=== PATIENT | male | born 1960 | race Caucasian/White ===

== ENCOUNTER 2017-06-17 19:14 | Observation (INO) | payer MEDICARE ==
[2017-06-17 20:11] LABS: #Eosinphils 0.1 thou/uL (0.0-0.7); #Lymphocytes 1.9 thou/uL (1.20-3.40); #Monocytes 0.5 thou/uL (0.11-0.59); #Neutrophils 3.7 thou/uL (1.40-6.50); %Basophils 0.4 % (0.0-1.0); %Eosinophils 1.3 % (0.0-10.0); %Lymphocytes 30.2 % (21.0-51.0); %Monocytes 8.1 % (0.0-10.0); Hematocrit 41.4 % (42.0-52.0); Mean Platelet Volume 8.6 fL (7.4-10.4); Red Blood Cell (RBC) Count 4.62 mill/uL (4.70-6.10); White Blood Cell (WBC) Count 6.2 thou/uL (4.8-10.8)
[2017-06-17 20:32] LABS: ALT (SGPT) 21 U/L (8-55); AST (SGOT) 14 U/L (5-34); Alkaline Phosphatase 66 U/L (40-150); Anion Gap 10 mmol/L (10-20); BUN (Urea Nitrogen) 14 mg/dL (8.4-25.7); Bilirubin, Total 0.8 mg/dL (0.2-1.2); CK (CPK) 119 U/L (30-200); Calc. Creatinine Clearance 0 mL/min (70-130); Carbon Dioxide 30 mmol/L (22-29); Chloride 104 mmol/L (98-107); Estimated GFR-MDRD 69; Globulin 2.1 g/dL (2.4-3.5); Protein, Total 5.9 g/dL (6.0-8.3)
[2017-06-17 20:36] LABS: Troponin I 0.091 ng/mL (< 0.028)
--- NOTE | 2017-06-17 21:20 | RAD ---
CHEST ONE VIEW: History: Chest pain. Hypertension. Comparison: 10-15-16 FINDINGS: Cardiac silhouette is magnified by projection and upper limits of normal in size. Pulmonary vasculatu re is unremarkable. Mediastinum is midline with aortic calcifications and post-operative changes. The re is no lobar consolidation or evidence of pneumothorax. environmental monitoring specialist leads overlie the chest. IMPRESSION: No active cardiopulmonary abnormalities are demonstrated. POS: [facility]
--- NOTE | 2017-06-17 22:47 | CT ---
CT HEAD NONCONTRAST: History: Headache. Hypertension. FINDINGS: No comparison. There is no evidence of acute intracranial hemorrhage or infarct. The ventricles appea r normal in size, shape, and position. There is no mass effect of shift of midline structures. IMPRESSION: No acute intracranial abnormalities are demonstrated on noncontrast CT head. POS: [facility]
[2017-06-18 00:05] LABS: Troponin I 0.096 ng/mL (< 0.028)
[2017-06-18] MEDS ORDERED: Ondansetron ODT 4 MG TAB SL PRN (01:07)
[2017-06-18] MEDS ORDERED: Acetaminophen 325 MG TAB PO PRN (01:07)
[2017-06-18] MEDS ORDERED: Ondansetron HCl/PF 4 MG/2 ML Vial IVP PRN (01:07)
[2017-06-18 01:33] VITALS: BMI 42.0
[2017-06-18 03:20] LABS: Troponin I 0.082 ng/mL (< 0.028)
[2017-06-18] MEDS ORDERED: Nitroglycerin 0.4 MG TAB (25 Tab Bottle) SL PRN (04:31)
[2017-06-18] MEDS ORDERED: HYDROcodone/Acetaminophen 5/325 mg Tablet PO PRN ×2 (04:31)
[2017-06-18] MEDS ORDERED: Dextrose 5% in Water 1,000 ML IV PRN (04:34)
[2017-06-18] MEDS ORDERED: Dextrose 50% Abboject 50 ML SYRINGE SLOW IVP PRN (04:34)
--- NOTE | 2017-06-18 05:21 | HP ---
PRIMARY CARE PHYSICIAN: Dr. Nick Salas. CHIEF COMPLAINT: High blood pressure. HISTORY OF PRESENT ILLNESS: Mr. Fernandez is a pleasant 56-year-old gentleman who was seen at [facility] on 06/18/2017. He reports that over the last 3 days, his blood pressures have been elevated at home. This was accom panied by dull frontal headache, bilateral, nonradiating, 5/10 at its worst, no known aggravating or relieving factors. He reports that the headaches have improved after his blood pressures decreased i n the emergency room. He also reports chronic chest discomfort at the site of his bypass surgery. The chest discomfort has not changed recently. He denies any change in his exercise tolerance. He also reports having blurry vision with headache. In terms of chest pain, he reports that it is dull, nonradiating, 1-2/10, no known aggravating or rel ieving factors. He denies that his pain is associated with any nausea or vomiting. REVIEW OF SYSTEMS: The following complete review of systems was negative, unless otherwise mentioned in the HPI or below: Constitutional: Weight loss or gain, sense of well-being, ability to conduct usual activities, exerc ise tolerance. Skin/Breast: Rash, itching, changes in hair growth or loss, nail changes, breast lumps, tenderness, swelling, nipple discharge. Eyes: Vision, double vision, tearing, blind spots, pain. ENT/Mouth: Headaches (location, time of onset, duration, precipitating factors), vertigo, lightheade dness, injury. Vision, double vision, tearing, blind spots, pain, nose bleeding, colds, obstruction, discharge, dental difficulties, gingival bleeding, dentures, neck stiffness, pain, tenderness, masses in thyroid or other areas. Cardiovascular: Precordial pain, substernal distress, palpitations, syncope, dyspnea on exertion, or thopnea, nocturnal paroxysmal dyspnea, edema, cyanosis, hypertension, heart murmurs, varicosities, ph lebitis, claudication. Respiratory: Pain, shortness of breath, wheezing, stridor, cough, hemoptysis, fever or night sweats. Gastrointestinal: Poor appetite, dysphagia, indigestion, abdominal pain, heartburn, eructation, naus ea, vomiting, hematemesis, jaundice, constipation, or diarrhea, abnormal stools (norma-colored, tarry, bloody, greasy, foul smelling), flatulence, hemorrhoids, recent changes in bowel habits. Genitourinary: Urgency, frequency, dysuria, nocturia, hematuria, polyuria, oliguria, unusual (or laurel nge in) color of urine, stones, hesitancy, change in size of stream, dribbling, acute retention or in continence, libido, potency. Musculoskeletal: Pain, swelling, redness or heat of muscles or joints, limitation, of motion, muscul ar weakness, atrophy, cramps. Neurologic/Psychiatric: Convulsions, paralyses, tremor, incoordination, paraesthesias, difficulties with memory of speech, sensory or motor disturbances, or muscular coordination (ataxia, tremor), emot ional problems, anxiety, depression, previous psychiatric care, unusual perceptions, hallucinations. Allergy/Immunologic: Skin rash, anemia, bleeding tendency, polydipsia, polyuria, intolerance to heat or cold. PAST MEDICAL HISTORY: Significant for diabetes mellitus type 2, hypertension, myocardial infarction, obesity, dyslipidemia, obstructive sleep apnea syndrome diagnosed about 17 years ago, patient does n ot use CPAP. Echocardiogram showing left ventricular ejection fraction of 25% prior to his bypass gr aft surgery. PAST SURGICAL HISTORY: Significant for elbow surgery, back surgery and coronary artery bypass graft x4 in 09/2016. FAMILY HISTORY: Both parents have pacemakers. SOCIAL HISTORY: The patient denies tobacco use, alcohol use or recreational drug use. ALLERGIES: No known drug allergies. CURRENT MEDICATIONS: Include Coreg 12.5 mg 2 times a day, aspirin 325 mg daily, lisinopril 5 mg michelle y, furosemide 20 mg 2 times a day, atorvastatin 40 mg at bedtime, Victoza 0.6 mg subcutaneously daily , Tresiba 90 units daily. PHYSICAL EXAMINATION: GENERAL: Mr. Fernandez is awake and alert, not in acute distress. He is morbidly obese, with a BMI of 42.1. VITAL SIGNS: Blood pressure is 144/91, pulse is 86, he is breathing at rate of 16, and saturating 96 % on room air. He is afebrile. In the emergency room, his blood pressure was as high as 184/112. EYES: No scleral icterus. No conjunctival pallor. ENT: Moist mucosal membranes, no oropharyngeal erythema or exudates. NECK: Supple, nontender, normal range of movement. Trachea is midline. RESPIRATORY: Accessory muscles of breathing are not active. Chest wall movements are symmetric bila terally. LUNGS: Clear to auscultation, without wheeze, rhonchi or crepitations. CARDIOVASCULAR: S1 and S2 are heard, regular. Peripheral pulses palpable. No carotid bruit, no per icardial rub. NEUROLOGIC: Cranial nerves II through XII are intact. Deep tendon reflexes are 2+. ABDOMEN: Soft, nontender, bowel sounds heard, no hepatomegaly, no splenomegaly. MUSCULOSKELETAL: Power is 5/5 in all 4 extremities. Normal range of movement at all major extremity joints. SKIN: No rashes or subcutaneous nodules. LYMPHATIC: No cervical lymphadenopathy. PSYCHIATRIC: Normal mood, normal affect, patient is oriented to person, place, and time. LABORATORY DATA AND IMAGING: Mr. Fernandez's labs and investigations were reviewed. I reviewed his electrocardiogram, which shows normal sinus rhythm, with Q-waves in the anterior leads. He also has Q-waves in the inferior leads. I also reviewed his chest x-ray, which does not show any pulmonary i nfiltrates. Laboratory investigation showed an unremarkable CBC, normal sodium, normal potassium, no rmal creatinine, indeterminate troponin I of 0.082 and an unremarkable liver profile. ASSESSMENT AND PLAN: Mr. Fernandez is a pleasant 56-year-old gentleman who was seen at [facility] on 06/18/2017. His problem list includes: 1. Hypertensive urgency. He presented to the emergency room because of hypertensive urgency. Blood pressure is now improved. Prior to arrival, he took an extra dose of Clonidine, but it reportedly d id not help. He will be admitted to the hospital for management of his blood pressure. 2. Elevated troponin I. His troponins are in the indeterminate range. He specifically denies any r ecent chest pain. He does report the chronic chest discomfort following coronary artery bypass graft surgery. However, he is a diabetic patient and could be presenting with atypical acute coronary syn drome. We will order a stress test. Further course of action depending on the outcome of the stress test. 3. Diabetes mellitus: Resume home medications, start Accu-Cheks and insulin sliding scale. 4. Dyslipidemia: Continue statins. 5. Obstructive sleep apnea syndrome: Currently, untreated, could be the cause of his resistant hype rtension. I counseled him and advised him to have a sleep study if needed and to start CPAP therapy if he still has obstructive sleep apnea syndrome. Many thanks for allowing me to participate in your patient's care. Please feel free to contact me wi th any questions or concerns. LEVEL OF RISK: High. LEVEL OF COMPLEXITY: High.
[2017-06-18] MEDS ORDERED: Carvedilol 25 MG TAB PO SCH (08:00)
[2017-06-18] MEDS: Lisinopril 5 MG TAB PO SCH (08:25)
[2017-06-18] MEDS ORDERED: (Liraglutide [Victoza 2-Pak] 0.6 MG) SC SCH ×2 (09:00→19:30)
[2017-06-18] MEDS ORDERED: hydrALAZINE 20 MG/ML VIAL SLOW IVP PRN (09:16)
[2017-06-18] MEDS: Furosemide 40 MG TAB PO SCH (09:21)
[2017-06-18] MEDS: Aspirin 325 mg Enteric Coated Tablet PO SCH (09:22)
[2017-06-18] MEDS: Atorvastatin Calcium 40 MG TAB PO SCH (09:22)
[2017-06-18] MEDS: Enoxaparin Sodium 40 MG/0.4 ML SYRINGE SC SCH ×2 (09:23→09:38)
--- NOTE | 2017-06-18 15:12 | PDOC.PN ---
- Subjective Encounter Start Date: 06/18/17 Encounter Start Time: 15:10 Patient seen at bedside. No C/P, SOB. No overnight events. - Objective Vital Signs & Weight: Vital Signs (12 hours) Temp Pulse Resp BP BP Pulse Ox 06/18/17 13:48 175/92 H 06/18/17 11:58 98.1 F 78 20 193/94 H 98 06/18/17 09:24 87 06/18/17 08:25 87 06/18/17 08:00 97.4 F L 87 20 06/18/17 07:34 97.4 F L 87 20 185/102 H 96 06/18/17 06:44 96 06/18/17 04:00 98.2 F 86 16 144/91 H 96 Weight Weight 310 lb 1.6 oz I&O: 06/17/17 06/18/17 06/19/17 06:59 06:59 06:59 Intake Total 100 Balance 100 Result Diagrams: 06/17/17 19:57 06/17/17 19:57 Additional Labs: Accuchecks 06/18/17 12:03 POC Glucose 141 H Phys Exam - Physical Examination Constitutional: NAD HEENT: moist MMs Neck: no JVD Respiratory: clear to auscultation bilateral Cardiovascular: RRR Gastrointestinal: soft Musculoskeletal: pulses present Neurological: moves all 4 limbs Psychiatric: normal affect, A&O x 3 Dx/Plan (1) Hypertension Code(s): I10 - ESSENTIAL (PRIMARY) HYPERTENSION Status: Chronic (2) Chest pain Code(s): R07.9 - CHEST PAIN, UNSPECIFIED Status: Resolved - Plan cont current plan of care, plan discussed w/ family * Increase Coreg to 25 mg PO BID * ASA/Statin * Await second portion of NM stress test
[2017-06-18] MEDS: Carvedilol 25 MG TAB PO SCH (16:40)
[2017-06-18] MEDS: HumaLOG 300 UNITS/3 ML VIAL SC PRN (19:18)
[2017-06-18] MEDS: Insulin Degludec [Tresiba Flextouch U-100] SC SCH ×3 (19:21)
[2017-06-18] MEDS: (Liraglutide [Victoza 2-Pak] 0.6 MG) SC SCH (19:21)
[2017-06-19 05:46] LABS: #Eosinphils 0.1 thou/uL (0.0-0.7); #Lymphocytes 1.5 thou/uL (1.20-3.40); #Monocytes 0.5 thou/uL (0.11-0.59); #Neutrophils 4.1 thou/uL (1.40-6.50); %Basophils 0.3 % (0.0-1.0); %Eosinophils 2.3 % (0.0-10.0); %Lymphocytes 24.3 % (21.0-51.0); %Monocytes 7.8 % (0.0-10.0); Hematocrit 41.3 % (42.0-52.0); Mean Platelet Volume 9.2 fL (7.4-10.4); Red Blood Cell (RBC) Count 4.57 mill/uL (4.70-6.10); White Blood Cell (WBC) Count 6.2 thou/uL (4.8-10.8)
[2017-06-19 06:00] LABS: Anion Gap 10 mmol/L (10-20); BUN (Urea Nitrogen) 17 mg/dL (8.4-25.7); Calc. Creatinine Clearance 148 mL/min (70-130); Calcium 8.7 mg/dL (7.8-10.44); Carbon Dioxide 27 mmol/L (22-29); Chloride 103 mmol/L (98-107); Estimated GFR-MDRD 70
[2017-06-19] MEDS: HumaLOG 300 UNITS/3 ML VIAL SC PRN (06:40)
[2017-06-19] MEDS: Lisinopril 5 MG TAB PO SCH (08:07)
[2017-06-19] MEDS: Carvedilol 25 MG TAB PO SCH (08:07)
[2017-06-19] MEDS: Aspirin 325 mg Enteric Coated Tablet PO SCH (10:02)
[2017-06-19] MEDS: Furosemide 40 MG TAB PO SCH (10:02)
[2017-06-19] MEDS: Atorvastatin Calcium 40 MG TAB PO SCH (10:02)
[2017-06-19] MEDS: Enoxaparin Sodium 40 MG/0.4 ML SYRINGE SC SCH (10:03)
[2017-06-19] MEDS: Insulin Degludec [Tresiba Flextouch U-100] SC SCH ×3 (10:04)
[2017-06-19] MEDS: (Liraglutide [Victoza 2-Pak] 0.6 MG) SC SCH (10:04)
--- NOTE | 2017-06-19 10:37 | PDOC.PN ---
- Subjective Encounter Start Date: 06/19/17 Encounter Start Time: 08:45 Subjective: no chest pain or sob -: feels better - Objective MAR Reviewed: Yes Vital Signs & Weight: Vital Signs (12 hours) Temp Pulse Resp BP Pulse Ox 06/19/17 08:07 96 06/19/17 08:00 97.5 F L 96 14 181/100 H 96 06/19/17 04:20 98.1 F 96 20 141/93 H 96 06/18/17 23:27 98.3 F 80 18 170/89 H 97 Weight Weight 310 lb 1.6 oz I&O: 06/18/17 06/19/17 06/20/17 06:59 06:59 06:59 Intake Total 100 1650 Balance 100 1650 Result Diagrams: 06/19/17 04:52 06/19/17 04:52 Additional Labs: Accuchecks 06/18/17 06/18/17 06/18/17 20:45 16:54 12:03 POC Glucose 144 H 233 H 141 H Phys Exam - Physical Examination HEENT: PERRLA, moist MMs Neck: no JVD, supple Respiratory: no wheezing, no rales Cardiovascular: RRR, no significant murmur Gastrointestinal: soft, non-tender, positive bowel sounds Musculoskeletal: pulses present Neurological: non-focal, moves all 4 limbs Psychiatric: A&O x 3 Dx/Plan (1) Hypertension Code(s): I10 - ESSENTIAL (PRIMARY) HYPERTENSION Status: Acute Comment: uncontrolled (2) CAD (coronary artery disease) Code(s): I25.10 - ATHSCL HEART DISEASE OF [place] CORONARY ARTERY W/O ANG PCTRS Status: Chronic Qualifiers: Coronary Disease-Associated Artery/Lesion type: bypass graft [place] vs. transplanted heart: [place] heart Associated angina: without angina Qualified Code(s): I25.810 - Atherosclerosis of coronary artery bypass graft(s) without angina pectoris (3) Dyslipidemia Code(s): E78.5 - HYPERLIPIDEMIA, UNSPECIFIED Status: Chronic (4) Demand ischemia of myocardium Code(s): I24.8 - OTHER FORMS OF ACUTE ISCHEMIC HEART DISEASE Status: Acute (5) DM type 2 (diabetes mellitus, type 2) Status: Chronic Qualifiers: Diabetes mellitus complication status: with unspecified complications Diabetes mellitus assistant terminal manager insulin use: without snf use Qualified Code( s): E11.8 - Type 2 diabetes mellitus with unspecified complications (6) DEEPALI (obstructive sleep apnea) Code(s): G47.33 - OBSTRUCTIVE SLEEP APNEA (ADULT) (PEDIATRIC) Status: Chronic (7) Obesity Code(s): E66.9 - OBESITY, UNSPECIFIED Status: Chronic Qualifiers: Obesity classification: adult class 3 (BMI >= 40) Body mass index: BMI 40.0 -44.9 - Plan will add spironolactone to current regimen to control htn -: stress test is abnormal likely due to prior cad with scarring -: cardiology opinion prior to discharge -: is on coreg, lisinopril and lasix -: suggest a small dose of imthuy pacheco plan per cardio advice * . d/w , dc pt home, [facility] on . Has f/u with in 2 weeks. Review of Systems - Medications/Allergies Allergies/Adverse Reactions: Allergies Allergy/AdvReac Type Severity Reaction Status Date / Time No Known Allergies Allergy Verified 10/12/16 21:09 Medications: Current Medications Hydrocodone Bitart/Acetaminophen ([place] 5/325) 1 tab PO Q4H PRN PRN Reason: Moderate Pain (4-6) Hydrocodone Bitart/Acetaminophen ([place] 5/325) 2 tab PO Q4H PRN PRN Reason: Severe Pain (7-10) Last Admin: 06/18/17 12:30 Dose: 2 tab Aspirin (Ecotrin) 325 mg PO DAILY ON LICENSE OF [facility] Last Admin: 06/19/17 10:02 Dose: 325 mg Atorvastatin Calcium (Lipitor) 40 mg PO DAILY ON LICENSE OF [facility] Last Admin: 06/19/17 10:02 Dose: 40 mg Carvedilol (Coreg) 25 mg PO BID-[facility] Last Admin: 06/19/17 08:07 Dose: 25 mg Dextrose/Water (Dextrose 50%) 25 gm SLOW IVP PRN PRN PRN Reason: Hypoglycemia Enoxaparin Sodium (Lovenox) 40 mg SC 0900 ON LICENSE OF [facility] Last Admin: 06/19/17 10:03 Dose: Not Given Furosemide (Lasix) 20 mg PO DAILY ON LICENSE OF [facility] Last Admin: 06/19/17 10:02 Dose: 20 mg Glucagon (Glucagon) 1 mg IM PRN PRN PRN Reason: Hypoglycemia Hydralazine HCl (Apresoline) 10 mg SLOW IVP Q4H PRN PRN Reason: SBP Greater Than 170 Last Admin: 06/18/17 09:24 Dose: 10 mg Dextrose/Water (D5w) 1,000 mls @ 0 mls/hr IV .Q0M PRN; As Directed PRN Reason: Hypoglycemia Insulin Human Lispro (Humalog) 0 units SC .MILD SLIDING SCALE PRN PRN Reason: Mild Correctional Scale Last Admin: 06/19/17 06:40 Dose: 6 unit Lisinopril (Zestril) 5 mg PO DAILY ON LICENSE OF [facility] Last Admin: 06/19/17 08:07 Dose: 5 mg Nitroglycerin (Nitrostat) 0.4 mg SL DAILY PRN PRN Reason: Chest Pain Insulin Degludec [ Tresiba Flextouch U- 100] 0 each SC DAILY ON LICENSE OF [facility] Last Admin: 06/19/17 10:04 Dose: 1 each (Liraglutide [ Victoza 2-Christian] 0.6 Mg) 0 each SC DAILY ON LICENSE OF [facility] Last Admin: 06/19/17 10:04 Dose: 1 each Sodium Chloride (Flush - Normal Saline) 10 ml IVF Q12HR ON LICENSE OF [facility] Last Admin: 06/19/17 10:03 Dose: 10 ml Sodium Chloride (Flush - Normal Saline) 10 ml IVF PRN PRN PRN Reason: Saline Flush
[2017-06-19] MEDS ORDERED: Spironolactone 25 MG TAB PO SCH (10:45)
[2017-06-19 11:33] VITALS: BP 163/87; TEMP 98.2
--- NOTE | 2017-06-19 12:16 | NM ---
MYOCARDIAL PERFUSION STUDY: DATE: 06/19/17. HISTORY: History of coronary disease post CABG. History of prior myocardial infarction. Indeterminate tropon in levels. RADIOPHARMACEUTICALS: 30.8 mCi Technetium 99m sestamibi, IV at stress, and 29.2 mCi Technetium 99m sestamibi, IV at rest. FINDINGS: There is decreased uptake of radiotracer seen within the mid and distal anterior left ventricular wal l and extending to the apex on both the resting and stress acquisitions. There is a suggestion of mi nimal reversibility involving a portion of the distal left anterior wall. Gated images show hypokine sis involving the inferior left ventricular wall motion and to a greater extent involving the septum with dyskinesis involving the distal aspect of the septum and extending to the apex. There is also a bsent thickening involving the mid and distal anterior wall. The left ventricular ejection fraction is diminished at 44%. IMPRESSION: 1. Abnormal myocardial perfusion study with evidence of scarring in the mid and distal anterior left ventricular wall extending to the apex with suggestion of minimal periinfarct ischemia at the distal anterior wall. 2. Dyskinesis involving the distal septum with hypokinesis involving the inferior wall and septum as well as anterior wall. There is diminished thickening involving the anterior wall. 3. Calculated left ventricular ejection fraction is decreased at 44%. POS: [facility]
--- NOTE | 2017-06-19 18:16 | CON ---
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 REASON FOR CONSULTATION: Abnormal stress. HISTORY OF PRESENT ILLNESS: Mr. Fernandez is a very pleasant 56-year-old white gentleman, who comes to the hospital for elevated blood pressure and headache. He is a patient of Dr. Aba Noyola, he saw him back in September for new onset cardiomyopathy, he had a heart catheterization that showed mu ltivessel disease and underwent coronary artery bypass grafting x4 by Dr. Aguilar at that time. He tahira ntually had an EF that improved back to the 50% to 55% range on an echo in December and has been dealing with chronic chest wall pain from the surgery ever since he left the hospital for his bypass. He com es in because he has had 3 or 4 days of headache. His blood pressure has been in the 220s/120s range . He eventually this Wednesday come in and was admitted for hypertensive emergency. His blood pressu re has improved somewhat, but still not back to normal and he denies any chest pain, tightness, or pr essure except for his chronic pain. Because of this pain, he had a stress test that showed an apical scar with dyskinesis of the septum. and this is a very small area of armando-infarct ischemia in the ap ex and an EF of 44%, which is close to what the echocardiogram showed with an EF of 50% to 55% back december. He denies any other issues other than the headache and high blood pressure. PAST MEDICAL HISTORY: 1. Type 2 diabetes. 2. Hypertension. 3. History of IA. 4. Obesity. 5. Hyperlipidemia. 6. DEEPALI. 7. Ischemic cardiomyopathy with improved EF after bypass. PAST SURGICAL HISTORY: 1. Elbow surgery. 2. Back surgery. 3. Coronary artery bypass grafting x4 in 09/2016. FAMILY HISTORY: Noncontributory, pacemakers in both parents. SOCIAL HISTORY: No alcohol, tobacco, or drugs. OUTPATIENT MEDICATIONS: Include, 1. Coreg 12.5 mg b.i.d. 2. Aspirin 325 mg a day. 3. Lisinopril 20 mg a day. 4. Furosemide 200 mg b.i.d. 5. Atorvastatin 40 mg at bedtime. 6. Victoza. 7. Tresiba. ALLERGIES: No known drug allergies. PHYSICAL EXAMINATION: VITAL SIGNS: Temperature 98.2, pulse 77, respiratory rate 20, saturating 96% on room air, and blood pressure 163/87, on admission was 220/128. GENERAL: Awake, alert, oriented x3. No distress. HEENT: Normocephalic, atraumatic. NECK: Supple. LUNGS: Clear. CARDIOVASCULAR: S1 and S2. No S3 or S4. No murmurs or rubs. ABDOMEN: Soft, positive bowel sounds. EXTREMITIES: No edema. SKIN: Warm and dry. LABORATORY DATA: Laboratory work was reviewed. White count of 6.2, hemoglobin of 14, hematocrit of 41, and platelet count of 152. Chemistries are unremarkable except for glucose of 284. BUN and crea tinine were normal. Troponin has been at 0.09, 0.09, and 0.08. ASSESSMENT NAD PLAN: 1. Hypertensive emergency. 2. Coronary artery disease, stable at this time. 3. Ischemic cardiomyopathy, EF is close to what it was called on an echocardiogram back in December, lópez carrillo this is a new change as he remains asymptomatic. 4. Status post bypass just 8 months ago. 5. Type 2 diabetes. PLAN: 1. We will increase his lisinopril to 10 mg twice a day. Agree with addition of Imdur and increase of carvedilol to 25 mg twice a day. 2. No further cardiac evaluation is required at this time. We will just increase the medications, a nd if his blood pressure is reasonably controlled, he should be able to be discharged home at any poi nt from the cardiac perspective. He has a followup appointment with Dr. Aba Noyola in 2 weeks but he should keep. Thank you for letting us to participate in the care of your patient. We will follow.
[2017-06-19] MEDS ORDERED: Lisinopril 10 MG TAB PO SCH (21:00)
--- NOTE | 2017-06-19 21:24 | DIS ---
DATE OF ADMISSION: 06/18/2017 DATE OF DISCHARGE: 06/19/2017 DISCHARGE DISPOSITION: To home. PRIMARY DISCHARGE DIAGNOSES: Uncontrolled hypertension, resolving; demand ischemia secondary to above. SECONDARY DISCHARGE DIAGNOSES: Coronary artery disease with coronary artery bypass grafting done in September of 2016, diabetes mellitus type 2, dyslipidemia, obstructive sleep apnea, and obesity. PROCEDURES DONE DURING HOSPITALIZATION: The patient has had CT brain, which showed no acute intracranial abnormalities. Chest x-ray done showed no acute cardiopulmonary abnormalities. Nuclear stress test done showed evidence of scarring in the mid and distal anterior left ventricular wall extending to the apex with suggestion of minimal armando-infarct ischemia of the distal anterior wall, the dyskinesis involving distal septum with hypokinesis involving the inferior wall and septum as well the anterior wall. Calculated EF was 44%. H and H 14 and 41, platelet count 139. BUN 17, creatinine 1.0. Troponin I was indeterminate with peaking up to 0.096, CK-MB 4.0. DISCHARGE MEDICATIONS: Aspirin 325 mg p.o. daily, Lipitor 40 mg p.o. daily, Coreg 25 mg twice daily, Lasix 20 mg daily, Tresiba 90 units subcutaneously daily, Imdur extended release 30 mg p.o. daily, Victoza 0.6 mg subcutaneous daily, lisinopril 10 mg twice daily, and spironolactone 25 mg p.o. q.a.m. ALLERGIES: No known drug allergies. INPATIENT CONSULTS: Dr. Gusman for Cardiology. DISCHARGE PLAN: The patient has a followup appointment with Dr. Noyola in 2 weeks. He also needs to follow up with , his primary care physician in 1 week. The patient has been advised to check blood pressure and pulse twice daily for a period of 10 days to follow up with primary care physician. He also needs to have metabolic panel to be done on . BRIEF COURSE DURING HOSPITALIZATION: The patient initially got admitted on the with reports of elevated blood pressure from last 3 days at home. He has also had dull frontal headache with off and on blurry vision. On arrival, blood pressure was 184/112 in the ER. The patient has had mild indeterminate troponin, likely demand ischemia due to uncontrolled hypertension. He was placed on an increased dose of Coreg along with lisinopril. This morning, spironolactone and Imdur were added to his medication regime along with increase of lisinopril to twice daily at 10 mg. He has had a nuclear stress test done which likely shows scarring from his prior NH. He has had revascularization with CABG done in September of this year. The patient has a followup appointment in [address] Noyola. He has been cleared by Dr. Gusamn for discharge today. He is advised to check blood pressure and pulse twice daily for a period of 10 days. Also, a metabolic panel to be done on in view of new medications being placed to make sure his renal function remained stable. He is otherwise hemodynamically stable and will be shortly discharged home. Please see a face to face documentation on [facility] for the day of discharge. [facility]
[2017-06-20] MEDS ORDERED: Spironolactone 25 MG TAB PO SCH (08:00)
== END 2017-06-19 14:20 | disposition home or self-care (01) ==
LOC: ERS 19:14 → 2SW 23:00
PROVIDERS: ADMIT Internal Medicine; ATTEND Internal Medicine
DX: I10 Essential (primary) hypertension (principal); I24.8 Other forms of acute ischemic heart disease; I16.0 Hypertensive urgency; I25.810 Atherosclerosis of coronary artery bypass graft(s) without angina pectoris; I25.2 Old myocardial infarction; E11.9 Type 2 diabetes mellitus without complications; E78.5 Hyperlipidemia, unspecified; G47.33 Obstructive sleep apnea (adult) (pediatric); F51.9 Sleep disorder not due to a substance or known physiological condition, unspecified; E66.9 Obesity, unspecified; R77.8 Other specified abnormalities of plasma proteins; Z68.41 Body mass index [BMI] 40.0-44.9, adult; Z79.82 Long term (current) use of aspirin; Z79.4 Long term (current) use of insulin; Z79.899 Other long term (current) drug therapy; Z95.1 Presence of aortocoronary bypass graft; Z98.890 Other specified postprocedural states
CPT/HCPCS: 70450; 71010; 78452; 80048; 80053; 82550; 82553; 82962 ×2; 84484 ×3; 85025 ×2; 90732; 93005; 93017; 94760 ×2; 96374; 99285; A9500; G0009; G0378; 36415; 36416; 90471; A4216; J0153; J0360; J1650

== ENCOUNTER 2017-10-26 19:30 | Outpatient (CLI) | payer MEDICARE | END 2017-10-26 19:31 | disposition home or self-care (01) | LOC: SLEEPLAB 19:30 | PROVIDERS: ATTEND Internal Medicine | DX: G47.61 Periodic limb movement disorder; E66.9 Obesity, unspecified; I10 Essential (primary) hypertension; Z68.41 Body mass index [BMI] 40.0-44.9, adult; F41.9 Anxiety disorder, unspecified; E11.9 Type 2 diabetes mellitus without complications; G47.33 Obstructive sleep apnea (adult) (pediatric) | CPT/HCPCS: 95811 ==

== ENCOUNTER 2019-01-04 07:42 | Outpatient (CLI) | payer MEDICARE ==
--- NOTE | 2019-01-04 10:24 | MRI ---
MRI CERVICAL SPINE WITHOUT CONTRAST: INDICATIONS: Cervical radiculopathy. COMPARISON: MRI cervical spine, dated 06/15/2014. TECHNIQUE: Multiplanar, multisequential images of the cervical spine obtained. FINDINGS: The cervical vertebrae maintain height and alignment. Mild degenerative changes are noted with mild osteophytes. The disk spaces are relatively well preserved with mild loss of disk space at C5-C6. V ertebral body signal is normal. C2-C3: No significant abnormality at C2-C3. C3-C4: Mild disk bulge and spondylosis mildly effaces the anterior subarachnoid space. No cervical canal or foraminal stenosis apparent. C4-C5: Mild spondylosis effaces the anterior subarachnoid space. No cord impingement. No cervical canal or foraminal stenosis. C5-C6: There is a prominent disk osteophyte complex, which compresses the cord, mildly flattening th e anterior cord. This was present on the prior exam but is slightly more prominent today. Bilateral foraminal encroachment due to facet and uncinate hypertrophy at this level. C6-C7: Disk bulge and spondylosis is seen, slightly more prominent paracentrally, to the left. This effaces the anterior subarachnoid space. there is left foraminal encroachment due to the hypertroph ic change. Cord signal appears normally maintained. IMPRESSION: 1. A prominent disk osteophyte complex at C5-C6 impinge on the cord, and there is bilateral foramina l stenosis at this level. 2. Degenerative spondylytic changes are seen to the left, at C6-C7, as described. POS: [facility]
--- NOTE | 2019-01-04 11:32 | MRI ---
MRI LUMBAR SPINE WITH AND WITHOUT CONTRAST: DATE: 01/04/19 HISTORY: 58-year-old male with low back pain and lumbar radiculopathy. COMPARISON: None. TECHNIQUE: Multiple sequences obtained in axial and sagittal planes, pre and post IV injection of gadolinium-bas ed contrast agent: 20 mL MultiHance. FINDINGS: There is straightening of the lumbar lordosis suggestive of muscle spasm. The conus medullaris termin ates at upper L2. Vertebral body heights are maintained. No major bone marrow signal abnormality. The re are five lumbar-type vertebrae. No high grade scoliosis. T12-L1: Essentially normal. L1-2: Mild bilateral facet hypertrophy. Otherwise essentially normal. L2-3: Mild bilateral degenerative facet changes. Disc space maintained. Minimal disc bulge. No high grade central spinal canal stenosis or high grade neural foraminal stenosis. L3-4: Mild to moderate disc space narrowing. Slight degenerative retrolisthesis of L3 on L4. Mild di ffuse disc bulge. No high grade neural foraminal stenosis. Mild central spinal canal stenosis. L4-5: Moderate disc space narrowing. Prominent diffuse disc bulge. Mild to moderate right facet DJD. Moderate left facet degenerative hypertrophy. Moderate right neural foraminal stenosis. Moderate to severe left neural foraminal stenosis. Moderate ligamentum flavum thickening. Moderate to severe cent ral spinal canal stenosis. Posterior epidural fat pad. Severe thecal sac stenosis. L5-S1: Degenerative retrolisthesis of L5 on S1. Moderate disc space narrowing. Prominent diffuse dis c bulge. Moderate to severe bilateral neural foraminal stenosis. No high grade central spinal canal s tenosis. Right hemilaminotomy defect. Enhancing scar tissue in the anterior right epidural space surr ounding the right SI nerve root at the lateral recess. IMPRESSION: 1. Lumbar spondylosis with moderate degenerative disc disease at the lowest three levels. 2. Severe thecal sac stenosis and moderate to severe left neural foraminal stenosis at L4-5. 3. Status post right hemilaminotomy at L5-S1, where there is postsurgical scar tissue surrounding th e right S1 nerve root. 4. High grade bilateral neural foraminal stenosis at L5-S1. 5. Loss of lordosis suggestive of muscle spasm. FEMI Abbott POS: TPC
== END 2019-01-04 07:43 | disposition home or self-care (01) ==
LOC: TBSIIMAG 07:42
PROVIDERS: ATTEND Neurological Surgery
DX: M47.22 Other spondylosis with radiculopathy, cervical region (principal); M46.92 Unspecified inflammatory spondylopathy, cervical region; M47.26 Other spondylosis with radiculopathy, lumbar region; M51.16 Intervertebral disc disorders with radiculopathy, lumbar region; M48.061 Spinal stenosis, lumbar region without neurogenic claudication; M48.07 Spinal stenosis, lumbosacral region; M25.78 Osteophyte, vertebrae; M48.02 Spinal stenosis, cervical region
CPT/HCPCS: 72141; 72158; 82565

== ENCOUNTER 2019-02-28 13:25 | Outpatient (CLI) | payer MEDICARE ==
[2019-02-28 15:00] LABS: Hemoglobin 15.2 g/dL (14.0-18.0); Mean Corpuscular HGB CONC 34.7 g/dL (32.0-36.0); Mean Corpuscular Hemoglobin 30.4 pg (27.0-31.0); Mean Corpuscular Volume 87.4 fL (78.0-98.0); Mean Platelet Volume 9.9 fL (7.4-10.4); Platelet Count 157 thou/uL (130-400); RBC Distribution Width 12.2 % (11.5-14.5); Red Blood Cell (RBC) Count 5.02 mill/uL (4.70-6.10); White Blood Cell (WBC) Count 5.7 thou/uL (4.8-10.8)
[2019-02-28 15:16] LABS: Anion Gap 12 mmol/L (10-20); BUN (Urea Nitrogen) 14 mg/dL (8.4-25.7); Calc. Creatinine Clearance 0 mL/min (70-130); Calcium 9.2 mg/dL (7.8-10.44); Carbon Dioxide 24 mmol/L (22-29); Chloride 104 mmol/L (98-107); Estimated GFR-MDRD 81; Glucose 283 mg/dL (70-105); Potassium 3.9 mmol/L (3.5-5.1); Sodium 136 mmol/L (136-145)
--- NOTE | 2019-02-28 18:58 | EKG ---
Test Reason : Blood Pressure : / mmHG Vent. Rate : 068 BPM Atrial Rate : 068 BPM P-R Int : 170 ms QRS Dur : 090 ms QT Int : 396 ms P-R-T Axes : 049 139 092 degrees QTc Int : 421 ms Normal sinus rhythm Low voltage QRS RSR' or QR pattern in V1 suggests right ventricular conduction delay Anterolateral infarct (cited on or before 06-OCT-2016) Abnormal ECG When compared with ECG of 17-JUN-2017 19:50, Left posterior fascicular block is no longer Present Confirmed by GRETA BLACKMON, SZbigniew ([id number]) on 02/28/2019 6:58:23 PM Referred By: ABILIO Confirmed By:DR. Beka HERNANDES MD
== END 2019-02-28 13:26 | disposition home or self-care (01) ==
LOC: LABBT 13:25
PROVIDERS: ATTEND Neurological Surgery
DX: Z01.818 Encounter for other preprocedural examination (principal); M54.12 Radiculopathy, cervical region
CPT/HCPCS: 80048; 85027; 93005; 93010

== ENCOUNTER 2019-03-08 05:46 | Day surgery (SDC) | payer MEDICARE ==
[2019-02-28 13:38] VITALS: BMI 40.0
--- NOTE | 2019-03-07 13:29 | HP ---
HISTORY OF PRESENT ILLNESS: Mr. Fernandez is a very pleasant 58-year-old man here today for evaluation of many years of progressive bilateral upper extremity and neck pain, so the best fit a C6 pattern. He has both an old MRI and new MRI from [facility] that reveals severe bilateral neuroforaminal narrowing at C5-6 and otherwise well-appearing spine. He has treated this with anti-inflammatories, weight loss, and activity modification. However, has not had any additional guideline therapy for this. PAST MEDICAL HISTORY: Significant for hypercholesterolemia, chronic pain syndrome, diabetes, coronary arterial disease, hypertension. PAST SURGICAL HISTORY: Unspecified cardiac surgery, lumbar decompression, left cataract surgery. CURRENT MEDICATIONS: Tresiba, Victoza, carvedilol, furosemide, spironolactone, amlodipine, isosorbide mononitrate, atorvastatin, aspirin, lisinopril/hydrochlorothiazide. ALLERGIES: NO KNOWN DRUG ALLERGIES. PHYSICAL EXAMINATION: GENERAL: The patient is alert and oriented x3. GAIT: Normal. No ataxia. EXTREMITIES: Upper extremity motor exam is normal. He does have a positive Spurling maneuver bilaterally. ASSESSMENT: Cervical radiculopathy. PLAN: Dr. Hernandez met with the patient, reviewed imaging, and advocated for a C5-C6 ACDF. He explained to the patient the risks, benefits, and alternatives to the procedure. The patient expressed understanding and elected to move forward with surgery as discussed. I do believe the patient is mentally competent and capable of making medical decisions for himself. We will move forward with surgery as planned. Job ID: [id number]
[2019-03-08] MEDS ORDERED: Fentanyl 100 MCG/2 ML VIAL ONE ×4 (06:23→10:27)
[2019-03-08] MEDS ORDERED: ceFAZolin Sodium (SDC) 2 GM/100 ML BAG ONE ×2 (06:28→13:26)
[2019-03-08] MEDS ORDERED: SUGAMMADEX SODIUM 500 MG/5 ML VIAL ONE (08:39)
--- NOTE | 2019-03-08 09:26 | OP ---
DATE OF PROCEDURE: 03/08/2019 SEMICONDUCTOR ASSEMBLER: Joe Santos PA-C INDICATION: Pain. DIAGNOSIS: Cervical radiculopathy. PROCEDURE PERFORMED: Anterior cervical diskectomy and fusion, C5-C6. ANESTHESIA: General. DESCRIPTION OF PROCEDURE: The patient was brought into the operating room and placed under general anesthesia. He was placed on table in a supine position. A transverse incision was planned over the lateral aspect of the neck on the right. After prepping and draping and after an appropriate preoperative pause, the incision was created. The underlying platysma muscle was identified and incised. A blunt tissue plane anterior to the sternocleidomastoid muscle was used to gain access to the prevertebral space. Self-retaining retractors were placed in the wound for optimal exposure. After confirming the appropriate level with C-arm fluoroscopy, an annulotomy was performed in the C5-C6 disk space. All disk material as well as anterior and posterior osteophytes were removed. After completely decompressing that segment, an 8-mm lordotic PEEK cage packed with allograft and autograft material was placed within the interbody space. An anterior cervical plate was then fashioned to the front of spine and secured with a total of 4 fixed screws. Midline and lateral structures were inspected and found to be free from significant trauma. The wound was irrigated. Hemostasis was maintained throughout. The wound was then closed in anatomic layers and a pressure dressing was applied. There were no known procedural complications. Job ID: [id number]
[2019-03-08] MEDS ORDERED: Tamsulosin HCl 0.4 MG CAP ONE (09:50)
[2019-03-08] MEDS ORDERED: Cyclobenzaprine 10 MG TAB ONE (09:51)
[2019-03-08] MEDS ORDERED: Morphine 4 MG/ML VIAL ONE (10:17)
[2019-03-08] MEDS ORDERED: Morphine 2 MG/ML SYRINGE ONE ×2 (10:27→10:58)
[2019-03-08] MEDS ORDERED: Insulin Regular 300 UNITS/3 ML VIAL ONE (10:42)
[2019-03-08] MEDS ORDERED: HYDROcodone/Acetaminophen 5/325 mg Tablet ONE (13:54)
== END 2019-03-08 15:35 | disposition home or self-care (01) ==
LOC: SDC 05:46
PROVIDERS: ATTEND Neurological Surgery
PROC: 0RG10A0 Fusion of Cervical Vertebral Joint with Interbody Fusion Device, Anterior Approach, Anterior Column, Open Approach (ICD-10-PCS; principal; 2019-03-08)
PROC: 0RT30ZZ Resection of Cervical Vertebral Disc, Open Approach (ICD-10-PCS; 2019-03-08)
DX: M54.12 Radiculopathy, cervical region (principal); M48.02 Spinal stenosis, cervical region; E78.00 Pure hypercholesterolemia, unspecified; I10 Essential (primary) hypertension; E11.9 Type 2 diabetes mellitus without complications; I25.10 Atherosclerotic heart disease of native coronary artery without angina pectoris; G89.4 Chronic pain syndrome; Z79.4 Long term (current) use of insulin; Z79.82 Long term (current) use of aspirin; Z79.899 Other long term (current) drug therapy
CPT/HCPCS: 36416; 76000; C1713; C1776; J0690; J1815; J2270; J3010

== ENCOUNTER 2019-07-31 15:56 | Emergency (ER) | payer MEDICARE ==
[2019-07-31] MEDS ORDERED: Ketorolac Tromethamine 30 MG/ML VIAL ONE (16:47)
[2019-07-31] MEDS ORDERED: Dexamethasone 10 MG/ML VIAL ONE (16:47)
--- NOTE | 2019-07-31 17:05 | CT ---
CT Lumbar Spine WO Con History: Back pain Comparison: MRI lumbar spine December 2018 Findings: Aortic contour is nonaneurysmal. No retroperitoneal Aortic adenopathy. No free fluid within the dependent portion of the pelvis. There is no acute fracture of the lumbar spine. Possible partial hemilaminectomy changes on the right L5. Levels are as follows: L1/L2: Mild degenerative disc space height loss. No significant neural foraminal or spinal canal narr owing. L2/L3: Low-grade degenerative disc space height loss. No significant neural foraminal or spinal canal narrowing. L3/L4: Vacuum disc phenomenon. Circumferential disc bulge. Moderate bilateral neural foraminal narrow ing. L4/L5: Circumferential disc osteophyte complex greatest in the subforaminal zones. Moderate to severe bilateral neural foraminal narrowing. L5/S1: Circumferential disc osteophyte complex. Moderate degenerative disc space height loss. High-gr aditi bilateral facet arthrosis. Moderate to severe bilateral neural foraminal narrowing. Impression: 1. No acute fracture or malalignment. 2. Right hemilaminectomy changes at L5/S1. 3. Concern for high-grade neural foraminal narrowing bilaterally L4/L5 and L5/S1.
[2019-07-31] MEDS ORDERED: Morphine 4 MG/ML VIAL ONE (18:35)
--- NOTE | 2019-07-31 18:48 | ULT ---
EXAM: Left lower extremity venous Doppler HISTORY: Left leg pain. FINDINGS: Grayscale, color-flow, Doppler evaluation, spectral analysis of the left lower extremity venous struc tures is performed with 2-D imaging. The left common femoral, superficial femoral, popliteal, posterior tibial, proximal greater saphenous and profunda femoral veins are imaged. There is normal luminal compressibility, flow, and augmentation in the visualized deep venous structu res of the left lower extremity. IMPRESSION: No evidence of a deep vein thrombosis in the visualized deep venous structures left lower extremity.
== END 2019-07-31 19:47 | disposition home or self-care (01) ==
LOC: ERS 15:56
DX: G89.29 Other chronic pain (principal); M54.42 Lumbago with sciatica, left side; I25.2 Old myocardial infarction; E11.9 Type 2 diabetes mellitus without complications; I10 Essential (primary) hypertension; Z79.4 Long term (current) use of insulin; Z79.82 Long term (current) use of aspirin; Z79.899 Other long term (current) drug therapy
CPT/HCPCS: 72131; 96372; 96374; J1100; J1885; J2270